=== PATIENT | female | born 1995 | race Caucasian/White ===

== ENCOUNTER → 2021-11-27 | Outpatient (CLI) | payer OTHER ==
--- NOTE | 2021-11-27 20:53 | US ---
EXAMINATION TYPE: Transabdominal DATE OF EXAM: 11/27/2021 4:45 PM COMPARISON: NONE CLINICAL HISTORY: Z36.89 SUPERVISION NORMAL . Confirmation of EXAM PERFORMED: Transabdominal (TA) EXAM MEASUREMENTS: GESTATIONAL AGE / DATING Physician Established: Not yet established Dates by LMP: (12 weeks/6 days) EDC: 06/05/2022 Dates by First Scan: No previous this is first scan Dates by Current Scan for: 6.67 cm 13weeks/0 days) EDC: 06/04/2022 MATERNAL ANATOMY Uterus: 14.1 x 7.3 x 9.9 cm Right Ovary: 2.6 x 1.8 x 1.9 cm Left Ovary: 3.4 x 1.8 x 2.6 cm Post CDS / Adnexa: No abnormalities seen Presence of free fluid: No Presence of corpus luteal cyst: Yes on Left ovary Presence of subchorionic bleed: No GESTATION / SURVEY CRL: 6.67 cm (13 weeks/0 days) Yolk Sac (normal less than 6mm): non vis on today's exam Heart Rate: 160 bpm Rhythm: Normal IUP: Viable IUP Date of LMP: 08/29/2021 Beta HcG (if available): Not available IMPRESSION: Single live intrauterine with ultrasound age of 13 weeks 0 days.
== END | disposition home or self-care (01) ==
LOC: RADUSWWP 15:59
PROVIDERS: ATTEND Obstetrics & Gynecology
DX: Z36.89 Encounter for other specified antenatal screening (principal); Z3A.13 13 weeks gestation of pregnancy
CPT/HCPCS: 76801